=== PATIENT | female | born 1985 | race Caucasian/White ===

== ENCOUNTER → 2017-10-12 | Outpatient (CLI) | payer BC | LOC: BMCIMAGING 12:43 | PROVIDERS: ATTEND Internal Medicine | DX: R07.81 Pleurodynia (principal) ==

== ENCOUNTER → 2017-10-17 | Outpatient (CLI) | payer BC | LOC: BMCIMAGING 08:01 | PROVIDERS: ATTEND Internal Medicine | DX: R07.81 Pleurodynia (principal) ==

== ENCOUNTER → 2018-02-23 | Outpatient (CLI) | payer BC ==
[~2018-02-23] MED LIST: GADOBUTROL 10 ML VIAL IVP ONE
== END ==
LOC: FIMAGING 10:21
PROVIDERS: ATTEND Internal Medicine
DX: Z12.39 Encounter for other screening for malignant neoplasm of breast (principal); Z80.3 Family history of malignant neoplasm of breast
CPT/HCPCS: 0159T; 77059; A9585; C8908

== ENCOUNTER 2018-06-10 22:34 | Emergency (ER) | payer BC ==
[2018-06-10] MEDS ORDERED: NS 1,000 ML IV ONE (22:45)
[2018-06-10 23:11] LABS: PLATELET COUNT 272 10^3/uL (150-400)
--- NOTE | 2018-06-10 23:50 | EDPHY ---
H & P Stated Complaint: 7 weeks now bleeding for 2 hours Time Seen by Provider: 06/10/18 22:39 HPI/ROS: Chief complaint: , pelvic pain and vaginal bleeding History of present illness: Sujata is a 33-year-old female, 1, para 0 who is 7 weeks who presents to the emergency department with her for evaluation of pelvic pain and vaginal bleeding. She reports the onset of symptoms approximately 2 hr ago. She has noted bright red blood. There has been no clot passage. She denies precipitating factors. She denies alleviating factors. She denies other associated signs or symptoms including no systemic symptoms such as lightheadedness, dizziness or fatigue. Review of systems: A 10 point review of systems was obtained and other than described above was negative - Personal History LMP (Females 10-55): Current Tetanus/Diphtheria Vaccine: Yes Current Tetanus Diphtheria and Acellular Pertussis (TDAP): Yes - Medical/Surgical History Hx Asthma: No Hx Chronic Respiratory Disease: No Hx Diabetes: No Hx Cardiac Disease: No Hx Renal Disease: No Hx Cirrhosis: No Hx Alcoholism: No Hx HIV/AIDS: No Hx Splenectomy or Spleen Trauma: No Other PMH: Appendectomy - Social History Smoking Status: Never smoked - Physical Exam Exam: General Appearance: Alert, no distress. Eyes: Pupils equal and round no pallor or injection. ENT, Mouth: Mucous membranes moist. Respiratory: There are no retractions, lungs are clear to auscultation. Cardiovascular: Regular rate and rhythm. Gastrointestinal: Abdomen is soft and non tender, no masses, bowel sounds normal. Neurological: Alert, nontoxic. Skin: Warm and dry, no rashes. Musculoskeletal: Neck is supple non tender. Extremities are symmetrical, full range of motion. Psychiatric: Patient is oriented X 3, there is no agitation. Constitutional: Initial Vital Signs Temperature (C) 37.4 C 06/10/18 22:35 Heart Rate 79 06/10/18 22:35 Respiratory Rate 16 06/10/18 22:35 Blood Pressure 137/77 H 06/10/18 22:35 O2 Sat (%) 98 06/10/18 22:35 O2 Delivery Mode Room Air Allergies/Adverse Reactions: No Known Allergies Allergy (Unverified 06/10/18 22:38) Home Medications: Medication Instructions Recorded NK [No Known Home Meds] 06/10/18 Medical Decision Making - Diagnostics Imaging Results: Imaging Impressions Obstetrics Ultrasound 06/10/18 22:47 Impression: Single live intrauterine gestation with estimated age by ultrasound of 7 weeks 6 days with an estimated delivery date of January 21, 2019. Results called and discussed with JUAN DIEGO Neff on 06/10/2018 at 23:33. Imaging: Discussed imaging studies w/ business performance analyst Radiologist ED Course/Re-evaluation: Patient seen under the supervision of my secondary supervising physician Dr. Basilio Shah. Patient is 7 weeks who presents with pelvic pain and vaginal bleeding. She is nontoxic. Vital signs are stable. Ultrasound confirms an intrauterine with a small subchorionic hemorrhage. Blood studies are unremarkable. Blood type O-positive, RhoGAM is not indicated. Patient will be discharged home. Home care is discussed including pelvic rest. She has follow-up with her OBGYN on Tuesday for recheck. Strict return precautions were discussed at length with her and her . Both of them voiced understanding and agreement with plan. Differential Diagnosis: Included but not limited to early spotting, miscarriage, threatened miscarriage, complications of such as ectopic and blighted ovum - Data Points Laboratory Results: Laboratory Results 06/10/18 23:00 06/10/18 23:00 06/10/18 06/10/18 06/10/18 23:00 23:00 23:00 WBC 10.87 10^3/uL H 10^3/uL (3.80-9.50) RBC 4.20 10^6/uL 10^6/uL (4.18-5.33) Hgb 13.5 g/dL g/dL (12.6-16.3) Hct 38.6 % % (38.0-47.0) MCV 91.9 fL fL (81.5-99.8) MCH 32.1 pg pg (27.9-34.1) MCHC 35.0 g/dL g/dL (32.4-36.7) RDW 11.9 % % (11.5-15.2) Plt Count 272 10^3/uL 10^3/uL (150-400) MPV 10.7 fL fL (8.7-11.7) Neut % (Auto) 64.7 % % (39.3-74.2) Lymph % (Auto) 27.5 % % (15.0-45.0) [place] % (Auto) 6.5 % % (4.5-13.0) Eos % (Auto) 0.6 % % (0.6-7.6) Baso % (Auto) 0.4 % % (0.3-1.7) Nucleat RBC Rel Count 0.0 % % (0.0-0.2) Absolute Neuts (auto) 7.03 10^3/uL H 10^3/uL (1.70-6.50) Absolute Lymphs (auto) 2.99 10^3/uL 10^3/uL (1.00-3.00) Absolute Monos (auto) 0.71 10^3/uL 10^3/uL (0.30-0.80) Absolute Eos (auto) 0.07 10^3/uL 10^3/uL (0.03-0.40) Absolute Basos (auto) 0.04 10^3/uL 10^3/uL (0.02-0.10) Absolute Nucleated RBC 0.00 10^3/uL 10^3/uL (0-0.01) Immature Gran % 0.3 % % (0.0-1.1) Immature Gran # 0.03 10^3/uL 10^3/uL (0.00-0.10) Sodium 134 mEq/L L mEq/L (135-145) Potassium 3.9 mEq/L mEq/L (3.5-5.2) Chloride 104 mEq/L mEq/L (97-110) Carbon Dioxide 23 mEq/l mEq/l (22-31) Anion Gap 7 mEq/L mEq/L (6-14) BUN 11 mg/dL mg/dL (7-23) Creatinine 0.6 mg/dL mg/dL (0.6-1.0) Estimated GFR > 60 Glucose 86 mg/dL mg/dL (70-100) Calcium 9.0 mg/dL mg/dL (8.5-10.4) Beta HCG, Quant 593137.00 mIU/mL H mIU/mL (0.00-4.83) Urine Color Urine Appearance Urine pH Ur Specific Horatio Urine Protein Urine Ketones Urine Blood Urine Nitrate Urine Bilirubin Urine Urobilinogen Ur Leukocyte Esterase Urine RBC Urine WBC Ur Epithelial Cells Urine Mucus Urine Glucose Patient ABO/Rh O POSITIVE 12/08/18 22:41 WBC RBC Hgb Hct MCV MCH MCHC RDW Plt Count MPV Neut % (Auto) Lymph % (Auto) [place] % (Auto) Eos % (Auto) Baso % (Auto) Nucleat RBC Rel Count Absolute Neuts (auto) Absolute Lymphs (auto) Absolute Monos (auto) Absolute Eos (auto) Absolute Basos (auto) Absolute Nucleated RBC Immature Gran % Immature Gran # Sodium Potassium Chloride Carbon Dioxide Anion Gap BUN Creatinine Estimated GFR Glucose Calcium Beta HCG, Quant Urine Color PALE YELLOW Urine Appearance CLEAR Urine pH 5.0 (5.0-7.5) Ur Specific [place]atio 1.006 (1.002-1.030) Urine Protein NEGATIVE (NEGATIVE) Urine Ketones NEGATIVE (NEGATIVE) Urine Blood 3+ H (NEGATIVE) Urine Nitrate NEGATIVE (NEGATIVE) Urine Bilirubin NEGATIVE (NEGATIVE) Urine Urobilinogen NEGATIVE EU EU (0.2-1.0) Ur Leukocyte Esterase NEGATIVE (NEGATIVE) Urine RBC 15-25 /hpf H /hpf (0-3) Urine WBC 1-3 /hpf /hpf (0-3) Ur Epithelial Cells TRACE /lpf /lpf (NONE-1+) Urine Mucus TRACE /lpf /lpf (NONE-1+) Urine Glucose NEGATIVE (NEGATIVE) Patient ABO/Rh Medications Given: Discontinued Medications Sodium Chloride (Ns) 1,000 mls @ 0 mls/hr IV EDNOW ONE; Wide Open PRN Reason: Protocol Stop: 06/10/18 22:46 Last Admin: 06/10/18 23:30 Dose: 1,000 mls Departure - Departure Disposition: Home, Routine, Self-Care Clinical Impression: Threatened Condition: Good Instructions: Threatened Miscarriage (ED) Additional Instructions: Please follow-up with an OBGYN on Tuesday for recheck You're quantitative beta HCG today was [id number] Your blood type is O-positive A subchorionic hemorrhage was seen on the ultrasound this evening Maintain pelvic rest as discussed If symptoms worsen or new symptoms develop return to the emergency department for recheck Referrals: Aletha Weber MD [Primary Care Provider] - As per Instructions Alaina Yepez MD [Medical Doctor] - As per Instructions
[2018-06-11 00:39] VITALS: BP 111/67
== END 2018-06-11 00:38 | disposition home or self-care (01) ==
DX: O20.0 Threatened abortion (principal); Z3A.01 Less than 8 weeks gestation of pregnancy; E86.9 Volume depletion, unspecified; Z90.49 Acquired absence of other specified parts of digestive tract

== ENCOUNTER → 2018-08-29 | Outpatient (CLI) | payer BC | LOC: FIMAGING 13:27 | PROVIDERS: ATTEND Obstetrics & Gynecology | DX: O98.512 Other viral diseases complicating pregnancy, second trimester (principal); Z3A.19 19 weeks gestation of pregnancy ==

== ENCOUNTER → 2018-11-20 | Outpatient (CLI) | payer BC | LOC: FIMAGING 14:18 | PROVIDERS: ATTEND Obstetrics & Gynecology | DX: Z34.03 Encounter for supervision of normal first pregnancy, third trimester (principal); Z3A.31 31 weeks gestation of pregnancy ==